=== PATIENT | female | born 1960 | race Hispanic/Latino ===

== ENCOUNTER 2024-11-16 08:27 | Day surgery (SDC) | payer OTHER ==
[2024-11-16] VITALS (12 sets, daily range): BP systolic 112–150; BP diastolic 57–72; PULSE 60–80; RESP 14–18; TEMP 97–97.6
[~2024-11-16] VITALS: Ht 162.6 cm; Wt 93.4 kg
[~2024-11-16 08:27] MED LIST: FENO54TA6 PO; FURO20TA4 PO; LACT10SO76 PO; LEVO150C5 PO; LOSA25TA41 PO; VITAMIN B12 PO; VITAMIN D2 PO
[2024-11-16] MEDS: 0.9%NACL 1000ML 1,000 ML IV ONE (09:59)
== END 2024-11-16 12:45 | disposition home or self-care (01) ==
LOC: ENDO 08:27 → DAH 08:27 → ENDO 12:45
PROVIDERS: ATTEND Internal Medicine Gastroenterology
DX: D37.2 Neoplasm of uncertain behavior of small intestine (principal); K29.50 Unspecified chronic gastritis without bleeding; K31.89 Other diseases of stomach and duodenum; D50.9 Iron deficiency anemia, unspecified; D13.1 Benign neoplasm of stomach; E66.01 Morbid (severe) obesity due to excess calories; I10 Essential (primary) hypertension; E78.00 Pure hypercholesterolemia, unspecified; Z79.899 Other long term (current) drug therapy
CPT/HCPCS: 44361; J7030; J2704; A4620; A4215 ×2; A4223; A4222; A4221; A4663; A4606; J3490